=== PATIENT | female | born 1990 | race Caucasian/White ===

== ENCOUNTER 2016-08-22 10:44 | Emergency (ER) | payer OTHER ==
[~2016-08-22] VITALS: Ht 165.1 cm; Wt 52.3 kg
[2016-08-22 11:04] VITALS: BP 109/74
[2016-08-22] MEDS ORDERED: IBUPROFEN 600 MG TABLET PO ONE ×2 (12:23→12:30)
== END 2016-08-22 13:21 | disposition home or self-care (01) ==
LOC: ER 10:45
DX: S16.1XXA Strain of muscle, fascia and tendon at neck level, initial encounter (principal); V43.52XA Car driver injured in collision with other type car in traffic accident, initial encounter; Y93.89 Activity, other specified; Y92.413 State road as the place of occurrence of the external cause; Y99.8 Other external cause status
CPT/HCPCS: 72050; 99284; A4606; Z7610

== ENCOUNTER 2017-06-19 15:41 | Emergency (ER) | payer BC, OTHER ==
[~2017-06-19] VITALS: Ht 167.6 cm; Wt 52.2 kg
[2017-06-19 15:49] VITALS: BP 105/70
== END 2017-06-19 16:26 | disposition home or self-care (01) ==
LOC: ER 15:45
DX: R21 Rash and other nonspecific skin eruption (principal)
CPT/HCPCS: 99283; A4606; Z7610

== ENCOUNTER 2017-11-07 22:32 | Emergency (ER) | payer BC, OTHER | END 2017-11-07 22:56 | disposition home or self-care (01) | DX: B00.1 Herpesviral vesicular dermatitis (principal); F10.10 Alcohol abuse, uncomplicated ==

== ENCOUNTER 2018-12-16 20:27 | Inpatient (IN) | payer BC, OTHER ==
[~2018-12-16] VITALS: Ht 167.6 cm; Wt 57.6 kg
--- NOTE | 2018-12-16 21:05 | NUR ---
BIB SELF FROM HOME WITH FAMILY. AAOX4. BREATHIG REGULAR BUT SHALLOW. AMBULATORY. C/O FEVER STARTING TODAY, PRODUCTIVE COUGH WITH CONGETION, SORETHROAT, FATIGUE AND GEN BODY ACHE. TO ER BED 11. MD AT BEDSIDE FOR EVAL. AWAITING ORDERS
[2018-12-16] MEDS ORDERED: IBUPROFEN 600 MG TABLET PO ONE ×2 (21:08→21:30)
[2018-12-16] MEDS ORDERED: ALBUTEROL FS 2.5 MG/3 ML VIAL.NEB ONE (21:16)
[2018-12-16] MEDS ORDERED: IPRATROPIUM NEB FS 0.5 MG/2.5 ML AMPUL.NEB ONE (21:16)
[2018-12-16] MEDS ORDERED: ALBUTEROL FS 2.5 MG/3 ML VIAL.NEB NEB ONE (21:30)
[2018-12-16] MEDS ORDERED: IPRATROPIUM NEB FS 0.5 MG/2.5 ML AMPUL.NEB NEB ONE (21:30)
[2018-12-16] MEDS ORDERED: Magnesium 1GM/D5W 100ML PREMIX 200 ML IV ONE (21:57)
[2018-12-16] MEDS ORDERED: predniSONE 20 MG TABLET PO ONE (22:00)
[2018-12-16] MEDS ORDERED: methylPREDNISolone SOD SUCC 125 MG/2ML VIAL IV ONE (22:00)
[2018-12-16] MEDS ORDERED: ALBUTEROL FS 2.5 MG/3 ML VIAL.NEB CONTNEB ONE (22:00)
[2018-12-16] MEDS ORDERED: methylPREDNISolone SOD SUCC 125 MG/2ML VIAL ONE (22:17)
[2018-12-16] MEDS ORDERED: Magnesium 1GM/D5W 100ML PREMIX 100 ML IV ONE ×2 (22:17)
[2018-12-16] MEDS ORDERED: ALBUTEROL FS 2.5 MG/0.5 ML VIAL.NEB ONE (22:18)
--- NOTE | 2018-12-17 00:49 | NUR ---
Dr. Taco lewis.
[2018-12-17 00:53] LABS: BASOPHILS % (AUTO) 0.3 % (0.0-2.0); HEMATOCRIT 42 % (33-45); HEMOGLOBIN 14.6 g/dL (11.5-14.8); LYMPHOCYTES # (AUTO) 0.4 /CMM (0.8-4.8); LYMPHOCYTES % (AUTO) 3.9 % (20.0-44.0); MEAN CORPUSCULAR HGB CONC 35 g/dl (31.0-36.0); MEAN CORPUSCULAR VOLUME 92 fL (82-100); MONOCYTES # (AUTO) 0.2 /CMM (0.1-1.30); MONOCYTES % (AUTO) 1.6 % (2.0-12.0); NEUTROPHILS # (AUTO) 9.2 /CMM (1.8-8.9); NEUTROPHILS % (AUTO) 94.2 % (43.0-81.0); PLATELET COUNT (AUTO) 237 /CMM (150-450); RED BLOOD CELL COUNT(AUTO) 4.63 MIL/uL (4.0-5.2); WHITE BLOOD COUNT (AUTO) 9.7 K/uL (4.3-11.0)
[2018-12-17] MEDS ORDERED: AZITHROMYCIN 250 MG TABLET ONE (00:59)
[2018-12-17] MEDS ORDERED: Z GUARD REMEDY 2 OZ OINT TP PRN (01:00)
[2018-12-17] MEDS ORDERED: ACETAMINOPHEN 325 MG TABLET PO PRN (01:00)
[2018-12-17] MEDS ORDERED: HYDROCODONE/APAP 5/325MG 1 EACH TABLET PO PRN (01:00)
[2018-12-17] MEDS ORDERED: ZOLPIDEM TARTRATE 5 MG TABLET PO PRN (01:00)
[2018-12-17] MEDS ORDERED: MAGNESIUM HYDROXIDE 30 ML UDC PO PRN (01:00)
[2018-12-17] MEDS ORDERED: ONDANSETRON HCL/PF 4 MG/2 ML VIAL IVP PRN (01:00)
[2018-12-17] MEDS ORDERED: MAG HYDROX/AL HYDROX/SIMETH 30 ML UDC PO PRN (01:00)
[2018-12-17] MEDS ORDERED: AZITHROMYCIN 250 MG TABLET PO ONE (01:00)
[2018-12-17 01:03] LABS: CALCIUM, SERUM 8.7 mg/dL (8.5-10.1); CARBON DIOXIDE 24 mmol/L (21-32); CHLORIDE 101 mmol/L (98-107); CREATININE 0.9 mg/dL (0.6-1.3); GLUCOSE 179 mg/dL (74-106); POTASSIUM 2.9 mmol/L (3.5-5.1); SODIUM SERUM 139 mmol/L (136-145); UREA NITROGEN, BLOOD 7 mg/dL (7-18)
[2018-12-17 01:09] LABS: ALANINE AMINOTRANSFERASE 15 U/L (12-78); ALBUMIN 3.7 g/dL (3.4-5.0); ALKALINE PHOSPHATASE 46 U/L (46-116); ASPARTATE AMINOTRANSFERASE 15 U/L (15-37); BILIRUBIN,TOTAL 0.5 mg/dL (0.2-1.0); TOTAL PROTEIN, SERUM 7.7 g/dL (6.4-8.2)
[2018-12-17] MEDS ORDERED: POTASSIUM CHLORIDE 20 MEQ TAB.PRT.SR PO ONE ×2 (01:43→02:00)
[2018-12-17 01:55] VITALS: BP 114/67
--- NOTE | 2018-12-17 01:55 | NUR ---
BELTRAN MS OPENING NOTES RECEIVED PATIENT FROM ER VIA GURNEY SAFELY TRANSFERRED TO BED, AMBULATORY STEADY WHEN AMBULATING, PLACED ON 3 L VIA NC.SP02 96%.DENIES ANY PAIN OR DISCOMFORT AT THIS TIME, PLACED ON CLOUD ENGAGEMENT PARTNER SR 99, IV SITE TO RIGHT AC#20 G INTACT AND PATENT, NO REDNESS, NO INFILTRATION PRESENT, ORIENTED TO STAFF AND CALL LIGHT AND KEPT WITHIN REACH, SAFETY PRECAUTIONS IN PLACE, LOW BED AND LOCKED, BELONGINGS LIST DONE, DISCUSSED PLAN OF CARE, MD AWARE OF ADMISSION AND AWAITING NEW ORDERS. Addendum: 12/17/18 at 0411 by ALE ARTHUR RN CLARIFICATION PRINTED CIRCUIT BOARDS INSPECTOR OPENING NOTES
--- NOTE | 2018-12-17 02:04 | NUR ---
PT TRANSPORTTED TO UNIT ON [facility] WITH EMT AND RN AT BEDSIDE W/ ACLS PROTOCOL. PT IS ON STABLE CONDITION FOR TRANSPORT. NAD NOTED DURING TRANSPORT.
[2018-12-17] MEDS ORDERED: diphenhydrAMINE HCL ELIX 25 MG/10 ML UDC PO ONE (02:30)
--- NOTE | 2018-12-17 02:30 | NUR ---
SHIRT FOLDING MACHINE OPERATOR NOTES CALLED AND SPOKE TO REGARDING PATIENT CRITICAL LAB VALUE LACTIC ACID OF 3.4 PER MD REPEAT LACTIC ACID IN 6 HOURS FROM TIME RESULTED AT 148. NO FURTHER ORDERS REGARDING LACTIC ACID AT THIS TIME. MADE MD AWARE PATIENT REQUESTING FOR BENADRYL TO ASSIST WITH SLEEP, NEW ORDER NOTED AND READBACK BENADRYL 25MG PO ONE TIME. PATIENT MADE AWARE OF NEW ORDERS.
[2018-12-17] MEDS ORDERED: ALBUTEROL FS 2.5 MG/3 ML VIAL.NEB NEB SCH (03:30)
[2018-12-17] MEDS ORDERED: IPRATROPIUM NEB FS 0.5 MG/2.5 ML AMPUL.NEB NEB SCH (03:30)
[2018-12-17 03:53] VITALS: BP 106/66
[2018-12-17 03:56] LABS: BILIRUBIN,DIRECT 0.2 mg/dL (0.0-0.2)
[2018-12-17 03:59] VITALS: BP 106/66
--- NOTE | 2018-12-17 05:20 | NUR ---
BEL[employer] MS NOTES PATIENT STATES SHE IS FEELING ANXIOUS AND FEELS LIKE SHE IS HAVING AN ANXIETY AND PANIC ATTACK. STATES SHE MIGHT WANT TO LEAVE AMA HOWEVER SHE IS NOT SURE IF SHE WANT TO GO OR STAY .NOTIFIED MD CHAVEZ OF ANXIETY WITH NEW ORDER FOR ATIVAN IV 0.25MG ONE TIME DOSE AND LACTIC ACID OF 3.3 AND POSSIBLE AMA. PATIENT MADE AWARE OF NEW ORDER STATES " IT MIGHT NOT WORK" ATTEMPTED TO REDIRECT PATIENT. NOTIFIED PT OF RISK AND BENEFITS OF STAYING IN HOSPITAL. Addendum: 12/17/18 at 0620 by ALE ARTHUR RN clarification home health rn notes
--- NOTE | 2018-12-17 05:30 | NUR ---
ENGAGEMENT MANAGER NOTES PATIENT DECIDED SHE WANTS TO GO AGAINST MEDICAL ADVICE,DESPITE EXPLANATION OF RISK AND BENEFITS, MADE AWARE UNABLE TO RECEIVE PRESCRIPTION FROM MD AT THIS TIME AMA PAPER SIGNED PLACED, IN CHART, BELONGINGS LIST SIGNED, REMOVED IV AND ID BAND. CALLED NATALIA GASPAR AT [phone] TO NOTIFY AND IF ABLE TO PICK PATIENT UP
--- NOTE | 2018-12-17 05:35 | NUR ---
INTERNAL CONTROLS SPECIALIST NOTES PATIENT LEFT WITH DAD AGAINST MEDICAL ADVICE. VS WNL. NO SOB PRESENT AT THIS TIME.
[2018-12-17] MEDS ORDERED: methylPREDNISolone SOD SUCC 125 MG/2ML VIAL IV SCH (09:00)
[2018-12-18] MEDS ORDERED: AZITHROMYCIN 250 MG TABLET PO SCH (01:00)
== END 2018-12-17 05:39 | disposition left against medical advice (07) | DRG 145 ==
LOC: ER 20:27 → TELE 12-17 00:44
PROVIDERS: ADMIT Family Medicine; ATTEND Family Medicine
DX: J40 Bronchitis, not specified as acute or chronic (principal); R09.02 Hypoxemia
CPT/HCPCS: 36415; 71045-TC; 80053-TC; 82248-TC; 83605-TC; 85025-TC; 87040-TC; 87081-TC; 87400; 94799-TC; G0378; J2930; J3475; Q0163

== ENCOUNTER 2018-12-17 16:38 | Emergency (ER) | payer OTHER ==
[~2018-12-17] VITALS: Ht 167.6 cm; Wt 57.6 kg
--- NOTE | 2018-12-17 17:08 | NUR ---
C/O COUGH AND CONGESTION STARTED 2 DAYS AGO, PATIENT A/OX4, BREATHING EVEN AND UNLABORED, NO SOB NOTED. DENIES PAIN ATT HIS TIME. ATTACHED ON THE MONITOR.
[2018-12-17] MEDS ORDERED: ALBUTEROL FS 2.5 MG/3 ML VIAL.NEB CONTNEB ONE (17:30)
[2018-12-17] MEDS ORDERED: IPRATROPIUM NEB FS 0.5 MG/2.5 ML AMPUL.NEB NEB ONE (17:30)
[2018-12-17] MEDS ORDERED: predniSONE 20 MG TABLET PO ONE (17:30)
[2018-12-17] MEDS ORDERED: ALBUTEROL FS 2.5 MG/3 ML VIAL.NEB ONE (17:41)
[2018-12-17] MEDS ORDERED: IPRATROPIUM NEB FS 0.5 MG/2.5 ML AMPUL.NEB ONE (17:41)
[2018-12-17] MEDS ORDERED: predniSONE 20 MG TABLET ONE (17:42)
--- NOTE | 2018-12-17 19:00 | NUR ---
BREATHING TX COMPLETED, PATIENT FEELS BETTER
--- NOTE | 2018-12-17 19:19 | NUR ---
rx provided, patient discharged to home in stable condition. Written and verbal after care instructions given. Patient verbalizes understanding of instruction.
[2018-12-17 19:20] VITALS: BP 101/80
== END 2018-12-17 19:21 | disposition home or self-care (01) ==
LOC: ER 16:38
DX: J20.9 Acute bronchitis, unspecified (principal); R09.02 Hypoxemia; F41.9 Anxiety disorder, unspecified; F10.10 Alcohol abuse, uncomplicated; R00.0 Tachycardia, unspecified; Y90.9 Presence of alcohol in blood, level not specified; Z87.891 Personal history of nicotine dependence
CPT/HCPCS: 94644; 99285; J7512

== ENCOUNTER 2023-01-07 00:14 | Emergency (ER) | payer OTHER ==
[~2023-01-07] VITALS: Ht 165.1 cm; Wt 68.0 kg
[2023-01-07 00:44] VITALS: BP 145/88; TEMP 98.2
--- NOTE | 2023-01-07 00:44 | NUR ---
BIBS. CHEST AND FACE RASH X 1 WEEKS WORST TODAY.
[2023-01-07] MEDS ORDERED: TRIA80OI TP (01:00)
--- NOTE | 2023-01-07 01:07 | NUR ---
Patient discharged to home in stable condition. Written and verbal after care instructions given. Patient verbalizes understanding of instruction.
== END 2023-01-07 01:09 | disposition home or self-care (01) ==
LOC: EDUNIT# 00:14 → ER 00:38
DX: L55.9 Sunburn, unspecified (principal); F41.9 Anxiety disorder, unspecified